=== PATIENT | female | born 1990 | race Caucasian/White ===

== ENCOUNTER 2018-02-04 11:17 | Emergency (ER) | payer BC ==
[2018-02-04] MEDS ORDERED: ONDANSETRON 4 MG TAB.RAPDIS PO ONE (11:32)
[2018-02-04] MEDS ORDERED: ACETAMINOPHEN 325 MG TABLET PO ONE (11:33)
--- NOTE | 2018-02-04 11:35 | ER Document Report ---
ED Medical Screen (RME) - General Chief Complaint: Vaginal Bleeding Stated Complaint: VAGINAL BLEEDING Time Seen by Provider: 02/04/18 11:29 Notes: RAPID MEDICAL EVALUATION DISCLOSURE I have seen this patient as part of a Rapid Medical Evaluation and, if applicable, placed any initially appropriate orders. The patient will be seen and fully evaluated, including a full history and physical exam, by a provider ( in Main ED or Fast Track) when a room becomes available. 27-year-old female (LMP 12/13/2017 with 3 positive home tests) here with complaints of lower abdominal cramping and vaginal bleeding with some small clots but no tissue. She has had some nausea throughout her but no vomiting. One previous resulted in a miscarriage. She does not currently have an LADIES SUIT OPERATOR. TRAVEL OUTSIDE OF THE [place] IN LAST 30 DAYS: No - Related Data Allergies/Adverse Reactions: No Known Allergies Allergy (Verified 02/04/18 11:25) Past Medical History - General Last Menstrual Period: 12/13/17 - Social History Chew tobacco use (# tins/day): No Frequency of alcohol use: None Drug Abuse: None Renal/ Medical History: Denies: Hx Peritoneal Dialysis Past Surgical History: Reports: Hx Cholecystectomy - Immunizations Hx Diphtheria, Pertussis, Tetanus Vaccination: Yes Physical Exam - Vital signs Vitals: Temp Pulse Resp BP Pulse Ox 98.2 F 100 16 168/92 H 98 02/04/18 11:23 02/04/18 11:23 02/04/18 11:23 02/04/18 11:23 02/04/18 11:23 Course - Vital Signs Vital signs: Temp Pulse Resp BP Pulse Ox 98.2 F 100 16 168/92 H 98 02/04/18 11:23 02/04/18 11:23 02/04/18 11:23 02/04/18 11:23 02/04/18 11:23
--- NOTE | 2018-02-04 11:48 | ER Document Report ---
ED General - General Chief Complaint: Vaginal Bleeding Stated Complaint: VAGINAL BLEEDING Time Seen by Provider: 02/04/18 11:29 Notes: Patient is a -1 6 week 27-year-old female who presents emergency department the chief complaint of 3 days of vaginal spotting and increased pelvic cramping. Patient states that initially was small spots when she wiped after the bathroom but has now noticed some clots in her underwear. She states that she is not going through multiple pads within an hour. She admits to suprapubic pelvic cramping. She states that improved with Tylenol. She denies any nausea, vomiting, abdominal pain, diarrhea, constipation, fever chills, vaginal discharge, pyuria, hematuria. Patient is in a monogamous sexual relationship with her . She states that she does not have any concerns for STDs at this time. TRAVEL OUTSIDE OF THE [place] IN LAST 30 DAYS: No - Related Data Allergies/Adverse Reactions: No Known Allergies Allergy (Verified 02/04/18 11:25) Past Medical History - General Last Menstrual Period: 12/13/17 - Social History Smoking Status: Never Smoker Chew tobacco use (# tins/day): No Frequency of alcohol use: None Drug Abuse: None Family History: Reviewed & Not Pertinent Patient has suicidal ideation: No Patient has homicidal ideation: No Renal/ Medical History: Denies: Hx Peritoneal Dialysis Past Surgical History: Reports: Hx Cholecystectomy - Immunizations Hx Diphtheria, Pertussis, Tetanus Vaccination: Yes Review of Systems - Review of Systems Constitutional: No symptoms reported Cardiovascular: No symptoms reported Respiratory: No symptoms reported Gastrointestinal: See HPI Genitourinary: No symptoms reported Female Genitourinary: See HPI Musculoskeletal: No symptoms reported Neurological/Psychological: No symptoms reported -: Yes All other systems reviewed and negative Physical Exam - Vital signs Vitals: Temp Pulse Resp BP Pulse Ox 98.2 F 100 16 168/92 H 98 02/04/18 11:23 02/04/18 11:23 02/04/18 11:23 02/04/18 11:23 02/04/18 11:23 - Notes Notes: PHYSICAL EXAM GENERAL: Alert, interacts well. HEAD: Normocephalic, atraumatic. LUNGS: Clear to auscultation bilaterally, no wheezes, rales, or rhonchi. No respiratory distress. HEART: Regular rate and rhythm. No murmurs, gallops, or rubs. ABDOMEN: Soft, nondistended, mild suprapubic tenderness. No guarding, rebound, or rigidity.. Bowel sounds present in all 4 quadrants. Female exam patient declined EXTREMITIES: Moves all 4 extremities spontaneously. No edema, radial and dorsalis pedis pulses 2/4 bilaterally. No cyanosis. NEUROLOGICAL: Alert and oriented x4. Normal speech. PSYCH: Normal affect, normal mood. SKIN: Warm, dry, normal turgor. No rashes or lesions noted. Course - Re-evaluation Re-evalutation: 02/04/18 13:11 Patient presents with a mild amount of vaginal bleeding in the setting of an early first trimester . Transvaginal ultrasound is unable to visualize an intrauterine at this time. Quantitative beta hCG below the zone of to margination. No active bleeding at time of presentation. She is Rh positive. Patient's abdominal exam is otherwise benign without any focal tenderness. I do not suspect an acute appendicitis, pyelonephritis, cystitis, or bowel obstruction. At this time I have informed the patient that she needs to return to the emergency department or the women's clinic in 48 hours for recheck of her quantitative beta hCG to assess whether or not this is a normal or a possible ectopic .At this time will discharge with return precautions and follow-up recommendations. Verbal discharge instructions given a the bedside and opportunity for questions given. Medication warnings reviewed. Patient is in agreement with this plan and has verbalized understanding of return precautions and the need for primary care follow-up in the next 24-72 hours. - Vital Signs Vital signs: Temp Pulse Resp BP Pulse Ox 98.7 F 79 18 123/88 H 99 02/04/18 13:27 02/04/18 13:27 02/04/18 13:27 02/04/18 13:27 02/04/18 13:27 - Laboratory Laboratory results interpreted by me: 02/04/18 02/04/18 11:45 11:45 Beta HCG, Quant 532.11 H Urine Protein 100 H Urine Blood LARGE H Ur Leukocyte Esterase TRACE H - Diagnostic Test Radiology reviewed: Reports reviewed Discharge - Discharge Clinical Impression: Vaginal bleeding Condition: Stable Disposition: HOME, SELF-CARE Additional Instructions: There is concern that you have a threatened miscarriage vs. a very early . At this time, you will need to follow up in 48-72 hours for a repeat blood test and ultrasound. THREATENED MISCARRIAGE: You have been evaluated for a possible miscarriage. At this time, there is no indication that a miscarriage will occur. Most women with your symptoms will go on to have a perfectly normal baby. However, careful observation will be necessary. A miscarriage occurs when the fetus is abnormal. There is no medicine or treatment for it. You should rest in bed until the symptoms have resolved. Do not douche or have sex for at least a week, or until OK'd by the doctor. Call the doctor or return for re-examination if there is an increase in bleeding or cramping, or passage of tissue. REPEAT BLOOD TEST: At this time, it is uncertain if you have a viable . During the first three months of , the hormone produced from the placenta will steadily rise, usually doubling in value every 2 - 3 days. In order to determine if your is viable and likely be succesful, a repeat of this blood test for the hormone is recommended in 2 - 3 days. An order for this test to be done as an outpatient is being provided. After you have this repeat test done, call your doctor or call us for the results. If the value of the test is increasing as would be expected in a normal , then your is likely to be ok. However, if the value of the test is declining, it will suggest something has happened with your and it will not likely be a successful . FOLLOW-UP CARE: If you have been referred to a physician for follow-up care, call the physician s office for an appointment as you were instructed or within the next two days. If you experience worsening or a significant change in your symptoms (very heavy bleeding with large clots of blood, passage of tissue, more severe abdominal / pelvic pain or cramping, feeling faint or severe weakness, fever, etc.), notify the physician immediately or return to the Emergency Department at any time for re-evaluation. OBSTETRIC-GYNECOLOGIC (OB-LEAK OPERATOR [employer]) PHYSICIANS IN [place]: [facility] [address] [place] [address] [phone] For active duty and dependents diagnosed with a threatened or miscarriage, you should follow up in the following manner: Standard patients who have a local civilian provider should follow up with that provider. Patients of the Family Practice Clinic should call your Team Nurse at 8: 00 am the following morning for further instructions. If you are neither a Standard patient nor a patient of the Family Practice Clinic, you should follow up at the [facility] ([facility]) . Patients already enrolled in the [facility] OB Clinic, Prime patients not assigned to the Family Practice Clinic, and Active Duty patients not assigned to Family Practice Clinic should report to the [facility] Lab at 8:00 am the next morning that the [facility] OB Clinic is open and then you will be seen in the OB Clinic at 11:00 am. Forms: Follow-Up Laboratory Testing, Follow-Up Radiology Testing Referrals: [facility] [Provider Group] - Follow up in 3-5 days
[2018-02-04 12:10] LABS: APPEARANCE,URINE CLOUDY; BILIRUBIN,URINE NEGATIVE (NEGATIVE); COLOR,URINE RED; GLUCOSE, URINE NEGATIVE (NEGATIVE); KETONES,URINE NEGATIVE (NEGATIVE); LEUKOCYTE ESTERASE,URINE TRACE (NEGATIVE); NITRITE,URINE NEGATIVE (NEGATIVE); PROTEIN,URINE 100 mg/dL (NEGATIVE); URINE SPECIFIC GRAVITY 1.023; UROBILINOGEN,URINE NEGATIVE mg/dL (<2.0)
--- NOTE | 2018-02-04 12:47 | RADIOLOGY REPORT (SQ) ---
EXAM DESCRIPTION: U/S OB TRANSVAGINAL W/O DOP COMPLETED DATE/TIME: 02/04/2018 12:23 pm REASON FOR STUDY: cramping/bleeding; eval ectopic miscarriage COMPARISON: None. TECHNIQUE: Transvaginal static and realtime grayscale images acquired of the pelvis. Additional gabriela cted spectral and color Doppler images recorded. All images stored on PACs. bHCG: Pending. CLINICAL DATES: 7 weeks 4 days. LIMITATIONS: None. FINDINGS: FETUS: None seen. UTERUS: The uterus measures 10.9 x 5.0 x 6.1 cm. The endometrium measures 1.4 cm. No sac. N o pole. CERVICAL LENGTH: 4.2 cm. Closed. RIGHT ADNEXA: Nonvisualized. LEFT ADNEXA: Nonvisualized. FREE FLUID: None. OTHER: No other significant finding. IMPRESSION: There is no evidence of an IUP or ectopic . Follow-up with serial beta HCG in 5 to 7 days and/or ultrasound as further evaluation. TECHNICAL DOCUMENTATION: JOB ID: [id number] OR-69 2010 [employer]- All Rights Reserved rev Reading location - IP/workstation name: [email or web address]
[2018-02-04 13:28] VITALS: BP 123/88
== END 2018-02-04 13:27 | disposition home or self-care (01) ==
LOC: ER 11:17
DX: N93.8 Other specified abnormal uterine and vaginal bleeding (principal); Z90.49 Acquired absence of other specified parts of digestive tract
CPT/HCPCS: 99284; 86900; 86901; 36415; 84702; 81001; 76817; S0119

== ENCOUNTER → 2018-02-07 | Outpatient (CLI) | payer BC, OTHER ==
--- NOTE | 2018-02-07 11:46 | RADIOLOGY REPORT (SQ) ---
EXAM DESCRIPTION: U/S OB TRANSVAGINAL W/O DOP COMPLETED DATE/TIME: 02/07/2018 11:23 am REASON FOR STUDY: EVAL FOR ECTOPIC TECHNIQUE: Endovaginal static and realtime grayscale images acquired of the pelvis. Additional selec liam spectral and color Doppler images recorded. All images stored on PACs. bHCG: Today, 431. On 02/04/2018, the quantitative HCG was 532. CLINICAL DATES: Prior menses 12/13/2017 LIMITATIONS: Left adnexa not well seen due to left pelvic kidney FINDINGS: UTERUS: No visualized intrauterine . Endometrial stripe is 1.5 mm in thickness a nd heterogeneous. There may be blood clot in the endometrial canal. Uterus is 11 x 6 x 4 cm in size . No fibroids. RIGHT ADNEXA: Normal ovary with normal vascular flow. Right ovary 2.4 x 2.6 x 2.2 cm in size with a 1.8 cm simple cyst. No adnexal free fluid.No adnexal masses. LEFT ADNEXA: Not visualized due to left pelvic kidney FREE FLUID: None. OTHER: No other significant finding. IMPRESSION: NO VISUALIZED INTRA- OR EXTRAUTERINE . bHCG LEVEL TOO LOW TO EXPECT VISUALIZATION OF . ECTOPIC CANNOT BE EXCLUDED. FOLLOW-UP ULTRASOUND AND SERIAL BHCG LEVELS STRONGLY RECOMMENDED TO ACCURATELY ASSESS STATU S. TECHNICAL DOCUMENTATION: JOB ID: [id number] [employer]- All Rights Reserved COMPARISON: None. 02/04/2018 OB ultrasound Reading location - IP/workstation name: [email or web address]
== END ==
LOC: RAD 09:12
PROVIDERS: ATTEND Emergency Medicine
DX: O20.9 Hemorrhage in early pregnancy, unspecified (principal)
CPT/HCPCS: 36415; 76817; 84702